=== PATIENT | female | born 1995 | race Caucasian/White ===

== ENCOUNTER 2022-03-06 21:28 | Emergency (ER) | payer SELFPAY ==
[~2022-03-06] VITALS: Ht 170.2 cm; Wt 54.4 kg
--- NOTE | 2022-03-06 22:14 | NUR ---
Patient was just triaged at this time due to short staffing in ER.
[2022-03-06] MEDS ORDERED: birth control pill PO (22:36)
[2022-03-06 23:41] LABS: HEMATOCRIT 40.3 % (31.2-41.9); MEAN CORPUSCULAR HEMOGLOBIN 33.8 uug (24.7-32.8); MEAN CORPUSCULAR VOLUME 97.1 fL (75.5-95.3); PLATELET COUNT (AUTO) 377 K/uL (179-408)
[2022-03-06 23:58] LABS: *URINE HCG, QUAL NEGATIVE (NEGATIVE)
[2022-03-07 00:17] LABS: CREATININE 0.8 mg/dL (0.6-1.3); POTASSIUM 3.7 mmol/L (3.5-5.1)
--- NOTE | 2022-03-07 00:38 | NUR ---
IV removed. Catheter intact and site benign. Pressure and 4x4 gauze applied to site. No bleeding noted.
--- NOTE | 2022-03-07 00:42 | NUR ---
Patient discharged to home in stable condition. Written and verbal after care instructions given. Patient verbalizes understanding of instructions. Stressed follow up or return to ER for worsening s/s.
[2022-03-07 00:44] VITALS: BP 125/62
== END 2022-03-07 00:44 | disposition home or self-care (01) ==
LOC: ER 21:33
DX: R07.9 Chest pain, unspecified (principal); R94.31 Abnormal electrocardiogram [ECG] [EKG]
CPT/HCPCS: 36415; 71045; 84703; 85025; 93005; A4663